=== PATIENT | female | born 1990 | race American Indian/Alaskan Native ===

== ENCOUNTER 2018-07-13 13:56 | Emergency (ER) | payer MEDICAID, OTHER ==
[2018-07-13 14:44] VITALS: BP 98/63; RESP 18; TEMP 98.2
[2018-07-13 16:18] LABS: INFLUENZA A B NEGATIVE FOR FLU A/B (NEGATIVE)
--- NOTE | 2018-07-13 17:20 | ED PDOC ---
Arrival/HPI - General Chief Complaint: Flu-like Symptoms Time Seen by Provider: 07/13/18 14:22 Historian: Patient - History of Present Illness Narrative History of Present Illness (Text): 07/13/18 18:43 27-year-old female presents today with cough nasal congestion sore throat since yesterday. No vomiting or diarrhea. No abdominal pain. No body aches. No medications have been taken at home. No sick contacts. No dizziness or weakness. pt states her eyes were tearing this morning but are improved now. No other complaints Past Medical History - Provider Review Nursing Documentation Reviewed: Yes - Travel History Have you recently traveled outside [place] w/in the past 3 mons?: No - Psychiatric Hx Substance Use: No - Anesthesia Hx Anesthesia: No Hx Anesthesia Reactions: No Hx Malignant Hyperthermia: No Family/Social History - Physician Review Nursing Documentation Reviewed: Yes Family/Social History: Unknown Family HX Smoking Status: Never Smoked Hx Alcohol Use: No Hx Substance Use: No Allergies/Home Meds Allergies/Adverse Reactions: Allergies No Known Allergies Allergy (Verified 07/13/18 14:41) Review of Systems - Review of Systems Constitutional: Fevers (subjective). absent: Fatigue Eyes: absent: Vision Changes, Photophobia, Eye Pain ENT: Sore Throat, Sinus Congestion Respiratory: Cough. absent: SOB Cardiovascular: absent: Chest Pain, Palpitations Gastrointestinal: absent: Abdominal Pain, Nausea, Vomiting Musculoskeletal: absent: Arthralgias Skin: absent: Rash, Pruritis Neurological: absent: Headache, Dizziness Psychiatric: absent: Anxiety, Depression Physical Exam Vital Signs Reviewed: Yes Vital Signs Temp Pulse Resp BP Pulse Ox 07/13/18 13:57 98.2 F 86 18 98/63 L 100 Temperature: Afebrile Blood Pressure: Normal Pulse: Regular Respiratory Rate: Normal Appearance: Positive for: Well-Appearing, Non-Toxic, Comfortable Pain Distress: None Mental Status: Positive for: Alert and Oriented X 3 - Systems Exam Head: Present: Atraumatic Pupils: Present: PERRL Extroacular Muscles: Present: EOMI Conjunctiva: Present: Normal Ears: Present: Normal, NORMAL TM Mouth: Present: Moist Mucous Membranes, Normal Lips, Normal Tounge. No: Drooling, Trismus Pharnyx: Present: Normal, ERYTHEMA. No: EXUDATE, TONSILS ENLARGED, Peritonsilar Swelling, Uvular Deviation, Muffled/Hoarse Voice Nose (External): Present: Atraumatic Nose (Internal): Present: Normal Inspection Neck: Present: Normal Range of Motion Respiratory/Chest: Present: Clear to Auscultation, Good Air Exchange. No: Respiratory Distress, Accessory Muscle Use Cardiovascular: Present: Regular Rate and Rhythm, Normal S1, S2. No: Murmurs Abdomen: No: Tenderness, Rebound, Guarding Neurological: Present: GCS=15, Speech Normal Skin: Present: Warm, Dry, Normal Color. No: Rashes Psychiatric: Present: Alert, Oriented x 3 Medical Decision Making ED Course and Treatment: 07/13/18 18:45 Patient is nontoxic well appearing in no distress. Vital signs are stable. c/o sore throat/nasal congestion/cough since last night afebrile; no medications taken today. rapid flu; negative rapid strep; negative Patient reassessment: Patient feeling better after medications, vital signs stable. Moist mucous membranes. amoxicillin given po. I advised follow up with primary care physician/ent specialist within the next 2 days, advised to increase fluids take medications as prescribed and return if symptoms worsen persist or if new symptoms develop Patient verbalizes understanding of discharge instructions and need for immediate followup. all aspects of this case were discussed the attending of record. IMPRESSION; pharyngitis Motrin every 6 hours as needed for pain/fever reduction Increase fluids amoxicillin 3 times daily x 10 days. Follow up primary care physician within the next 2 days Follow up with the ENT specialist within the next 2 days. Saltwater gargles, throat lozenges Return if symptoms worsen persist or if new symptoms develop - Medication Orders Current Medication Orders: Discontinued Medications Acetaminophen (Tylenol 325mg Tab) 650 mg PO STAT STA Stop: 07/13/18 16:53 Last Admin: 07/13/18 17:00 Dose: 650 mg Amoxicillin (Amoxil 500 Mg Cap) 500 mg PO STAT STA; Protocol Stop: 07/13/18 16:52 Last Admin: 07/13/18 17:00 Dose: 500 mg Disposition/Present on Arrival - Present on Arrival Any Indicators Present on Arrival: No History of DVT/PE: No History of Uncontrolled Diabetes: No Urinary Catheter: No History of Decub. Ulcer: No History Surgical Site Infection Following: None - Disposition Have Diagnosis and Disposition been Completed?: Yes Diagnosis: Sore throat Disposition: HOME/ ROUTINE Disposition Time: 16:39 Patient Plan: Discharge Condition: GOOD Discharge Instructions (ExitCare): Sore Throat, Adult (DC) Additional Instructions: Motrin every 6 hours as needed for pain/fever reduction Increase fluids amoxicillin 3 times daily x 10 days. Follow up primary care physician within the next 2 days Follow up with the ENT specialist within the next 2 days. Saltwater gargles, throat lozenges Return if symptoms worsen persist or if new symptoms develop Prescriptions: Amoxicillin 500 mg PO TID #30 tab Ibuprofen [Motrin] 600 mg PO Q6H PRN #20 tab PRN Reason: pain/fever reduction Referrals: Andrew Soriano DO [Staff Provider] - Follow up with primary Devorah Sylvester MD [Medical Doctor] - Follow up with primary [facility] [Outside] - Follow up with primary Forms: [employer] ([place] Islander), WORK NOTE
[2018-07-13 18:32] VITALS: PULSE 88; O2SAT 98
== END 2018-07-13 18:32 | disposition home or self-care (01) ==
LOC: ED 13:56
DX: J02.9 Acute pharyngitis, unspecified (principal)

== ENCOUNTER 2018-09-07 23:52 | Emergency (ER) | payer SELFPAY ==
[2018-09-08 00:20] VITALS: TEMP 99.1
[2018-09-08] MEDS ORDERED: Naproxen 550 mg Tab PO STA (01:12)
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
[2018-09-08 01:46] LABS: URINE BILIRUBIN NEGATIVE (NEGATIVE); URINE BLOOD TRACE-INTACT (NEGATIVE); URINE GLUCOSE (UA) NEGATIVE (NEGATIVE); URINE LEUKOCYTE ESTERASE NEGATIVE Leu/uL (NEGATIVE); URINE PROTEIN NEGATIVE mg/dL (<30 mg/dL); URINE UROBILINOGEN 0.2 E.U./dL (<1 E.U./dL)
[2018-09-08 01:53] LABS: URINE APPEARANCE SL CLOUDY (CLEAR); URINE COLOR YELLOW (YELLOW)
[2018-09-08 02:26] LABS: URINE BACTERIA MANY /hpf; URINE RBC 0 - 2 /hpf (0-2); URINE WBC 0 - 2 /hpf (0-6)
[2018-09-08 04:36] VITALS: BP 121/73; PULSE 84; RESP 15; O2SAT 99
--- NOTE | 2018-09-08 09:31 | RAD ---
Date of service: 09/08/2018 PROCEDURE: Radiographs of the chest and bilateral ribs HISTORY: pain COMPARISON: None available. TECHNIQUE: Frontal radiograph of the chest and multiple oblique radiographs of the bilateral ribs were obtained. 5 views obtained. FINDINGS: RIGHT RIBS: No fracture or focal lesion visualized. LEFT RIBS: No fracture or focal lesion visualized. LUNGS: Clear. PLEURA: No pneumothorax or pleural fluid. CARDIOVASCULAR: Normal cardiac size. No pulmonary vascular congestion. No aortic atherosclerotic calcification present OTHER FINDINGS: None. IMPRESSION: Unremarkable radiographs of the chest and bilateral ribs. No rib fracture.
--- NOTE | 2018-09-08 09:33 | RAD ---
Date of service: 09/08/2018 PROCEDURE: Radiographs of the Lumbar Spine. HISTORY: pain COMPARISON: No prior. TECHNIQUE: 5 views obtained. FINDINGS: BONES: Normal alignment. No listhesis. No fracture. DISC SPACES: Unremarkable. OTHER FINDINGS: None. IMPRESSION: Unremarkable radiographs of the lumbar spine.
--- NOTE | 2018-09-08 09:33 | RAD ---
Date of service: 09/08/2018 HISTORY: pain COMPARISON: No prior. TECHNIQUE: Four views obtained. FINDINGS: BONES: Alignment maintained. No fracture. DISC SPACES: Normal. SOFT TISSUES: Normal. OTHER FINDINGS: None. IMPRESSION: Normal radiographs of the thoracic spine.
== END 2018-09-08 04:20 | disposition home or self-care (01) ==
LOC: ED 23:52
DX: M62.838 Other muscle spasm (principal); T14.8XXA Other injury of unspecified body region, initial encounter; W19.XXXA Unspecified fall, initial encounter